=== PATIENT | male | born 1980 | race Caucasian/White ===

== ENCOUNTER 2018-05-27 21:45 | Emergency (ER) | payer BC, SELFPAY ==
[2018-05-27 21:45] VITALS: BP 139/72; PULSE 72; RESP 15; TEMP 36.6; O2SAT 98; BMI 20.1
--- NOTE | 2018-05-27 22:49 | ED.VISSUMM ---
- ER Visit Summary Date of Service: 05/27/18 Chief Complaint: Laceration History of Present Illness: The patient is a 38 M who has no primary care physician. He reports that he was trying to fix the garage door when the door fell down and the ladder fell over and he caught himself on the garage door track and suffered a laceration to his right shoulder. He reports he has pain is 1 out of 10 severity stings. He denies any other injuries. He is right-hand dominant. He denies any numbness or weakness distally. His tetanus is up-to-date. Physical Examination: Vitals: Stable. Afebrile. Neck: No vertebral tenderness. Full ROM without difficulty. Cleared by NEXUS criteria. Back: No vertebral tenderness. General: A&O x 3. NAD. Cardiovascular exam: Regular rate and rhythm, no murmur, rub or gallop. Respiratory exam: Chest nontender. No crepitus. Clear to auscultation bilaterally. No wheezes or stridor. Abdominal exam: Soft, nontender, nondistended, normal bowel sounds. No pain in RUQ or LUQ specifically. No peritoneal signs. Extremity: 5 cm laceration to the anterior portion of his proximal deltoid. No active bleeding. He is neurovascular intact distally. Emergency Department Course and Treatment: Patient refused pain medications. He had his wound anesthetized and repaired. He tolerated it well. Treatment Plan: Patient will be discharged instructions follow-up Dr. Artie Overton III in 14 days for suture removal. Return to the emergency department for any worsening symptoms. Disposition: To home in improved and stable condition. Impression: 1. Laceration right shoulder, 5 cm, repaired. Procedure note: Wound was cleansed with chlorhexidine soap. Anesthetized with 1% lidocaine without epinephrine. Copiously irrigated with normal saline. Wound was explored there is no foreign material present. It was closed with 7 simple interrupted 4-0 ethilon sutures. The patient tolerated it well. This note was generated with [employer] dictation software. It may contain incorrect words, spelling, and punctuation that were not noted in review of the chart prior to signing ED Disposition - Plan for ED Patient: Disposition: Home or Assisted Living Chief Complaint: Laceration Instructions: ED Laceration Ext Sutr Stap Tape Referrals: Artie Overton Jr. [HONORARY STAFF] - 10-14 Days suture removal
[2018-05-27 23:26] VITALS: BP 140/71; PULSE 80; RESP 18; O2SAT 99
== END 2018-05-27 23:26 | disposition home or self-care (01) ==
LOC: ED 23:01
PROVIDERS: Emergency Provider Emergency Medicine
DX: S41.011A Laceration without foreign body of right shoulder, initial encounter (principal); W22.8XXA Striking against or struck by other objects, initial encounter; Y93.9 Activity, unspecified; Y92.9 Unspecified place or not applicable
CPT/HCPCS: 12002; 99284